=== PATIENT | male | born 1990 | race Caucasian/White ===

== ENCOUNTER → 2025-01-31 | Day surgery (SDC) | payer OTHER ==
[~2025-01-31] VITALS: Ht 167.6 cm; Wt 52.2 kg
[~2025-01-31] MED LIST: ACETAMINOPHEN 1000MG/100ML 100 ML IV ONE; BUPIVACAINE HCL 0.5% 175 ML in ON-Q PM013 DRUG DELIV DEVICE 1 EA IR SCH; BUPIVACAINE HCL/PF 0.5% (5MG/ML) 10ML ONE; HYDROMORPHONE HCL/PF 1MG/ML INJ IV PRN; ONDANSETRON HCL 4MG/2ML INJ IV PRN
[2025-01-31] MEDS: LACTATED RINGERS 1,000 ML IV SCH (06:19)
[2025-01-31] MEDS: BUPIVACAINE HCL 0.5% 175 ML in ON-Q PUMP (PM013=P270X2) IR SCH (08:47)
== END | disposition home or self-care (01) ==
LOC: OR 05:32
PROVIDERS: ATTEND Surgery
DX: K40.90 Unilateral inguinal hernia, without obstruction or gangrene, not specified as recurrent (principal); Z79.899 Other long term (current) drug therapy; Z98.890 Other specified postprocedural states
CPT/HCPCS: 49505; J0665; J3490; C1781; J0131